=== PATIENT | male | born 2000 | race Caucasian/White ===

== ENCOUNTER 2020-08-16 21:22 | Emergency (ER) | payer OTHER ==
[2020-08-16] MEDS ORDERED: IBUPROFEN800 MG PO (23:11)
== END 2020-08-16 23:30 | disposition home or self-care (01) ==
LOC: ER1 21:22
DX: S50.01XA Contusion of right elbow, initial encounter (principal); V86.59XA Driver of other special all-terrain or other off-road motor vehicle injured in nontraffic accident, initial encounter; Y92.410 Unspecified street and highway as the place of occurrence of the external cause
CPT/HCPCS: 73080; 99283